=== PATIENT | male | born 1980 | race African-American/Black ===

== ENCOUNTER 2023-11-20 17:13 | Emergency (ER) | payer SELFPAY | END 2023-11-20 19:13 | LOC: ERS 17:13 | DX: T65.92XA Toxic effect of unspecified substance, intentional self-harm, initial encounter (principal); R03.0 Elevated blood-pressure reading, without diagnosis of hypertension; F17.210 Nicotine dependence, cigarettes, uncomplicated | CPT/HCPCS: 99284 ==